=== PATIENT | male | born 1950 ===

== ENCOUNTER 2016-08-04 02:44 | Observation (INO) | payer SELFPAY ==
[2016-08-04] MEDS ORDERED: DiphenhydrAMINE 50 mg/ml Inj ONE (02:49)
[2016-08-04] MEDS ORDERED: DiphenhydrAMINE 50 mg/ml Inj IVP STA (03:04)
--- NOTE | 2016-08-04 03:07 | C.PDOC ---
History Of Present Illness Patient is a 66 year old male who presents to the ER with a complaint of swelling to the lips, tongue and SOB. Patient reports he was eating an orange earlier tonight. Denies rash. Chief Complaint (Nursing): Allergic Reaction History Per: Patient History/Exam Limitations: no limitations Onset/Duration Of Symptoms: Hrs Current Symptoms Are (Timing): Still Present Context: Food Possible Cause: Food Associated Symptoms: Swelling, Dyspnea. denies: Skin Rash Home/EMS Treatment: None Recent travel outside of the [place]: No Past Medical History Reviewed: Historical Data, Nursing Documentation, Vital Signs Vital Signs: Last Vital Signs Temp 98.9 F 08/04/16 03:48 Pulse 56 L 08/04/16 05:23 Resp 16 08/04/16 05:23 BP 151/83 H 08/04/16 05:23 Pulse Ox 98 08/04/16 05:33 - Medical History PMH: HTN Surgical History: No Surg Hx Family History: States: Unknown Family Hx - Social History Hx Alcohol Use: No Hx Substance Use: No - Immunization History Hx Tetanus Toxoid Vaccination: No Hx Influenza Vaccination: No Hx Pneumococcal Vaccination: No Review Of Systems Respiratory: Positive for: Shortness of Breath Skin: Positive for: Other (Swelling). Negative for: Rash Physical Exam - Physical Exam Appears: Non-toxic, No Acute Distress Skin: Normal Color, Warm, Dry Head: Atraumatic, Normacephalic Oral Mucosa: Moist Tongue: Swelling Lips: Swelling Throat: Normal, No Other (Swelling) Chest: Symmetrical, No Tenderness Cardiovascular: Rhythm Regular, No Murmur Respiratory: Rales (Bilaterally to lower half posteriorly), No Rhonchi, No Wheezing Gastrointestinal/Abdominal: Soft, No Tenderness Neurological/Psych: Oriented x3, Normal Speech, Normal Cognition ED Course And Treatment - Laboratory Results Result Diagrams: 08/04/16 03:12 08/04/16 03:12 ECG Interpretation: Normal, No Acute Changes Interpretation Of ECG: NSR, poor R wave progression V! to V4, no acute change, normal tracings. O2 Sat by Pulse Oximetry: 98 (Room air) Pulse Ox Interpretation: Normal - Radiology CXR: Interpreted by Or CXR Interpretation: Yes: No Acute Disease. No: Infiltrates - CT Scan/US CT neck soft tissue Other Rad Studies (CT/US): Read By Radiologist, Radiology Report Reviewed CT/US Interpretation: EXAM: CT Neck Without Intravenous Contrast. CLINICAL HISTORY: 66 years old, male; Pain; Painful swallowing; Additional info: Swelling of. tongue-angioedema. TECHNIQUE: Axial computed tomography images of the neck without intravenous contrast. This CT. exam was performed using one or more of the following dose reduction techniques: automated. exposure control, adjustment of the mA and/or kV according to patient size, and/or use of iterative. reconstruction technique. Coronal and sagittal reformatted images were created and reviewed. COMPARISON: No relevant prior studies available. FINDINGS: Nasopharynx: Unremarkable. Oropharynx: Unremarkable. No significant tonsillar enlargement. Hypopharynx: Unremarkable. Larynx: Unremarkable. Normal epiglottis. Trachea: Unremarkable. Retropharyngeal space : Unremarkable. Submandibular/parotid glands: Unremarkable. Glands are normal in size. Thyroid: Unremarkable. No enlarged or calcified nodules. Bones/joints : No acute fracture. Soft tissues: Mucosal thickening in the hypopharynx worrisome for pharyngitis. There is extensive. edema in the soft tissues of the neck consistent with infection. No definite abscess however. evaluation is limited without intravenous contrast. Vasculature: No acute findings. Lymph nodes: Unremarkable. No lymphadenopathy. Sinuses: Mucosal thickening maxillary sinuses. Lung apices: Unremarkable as visualized. IMPRESSION: Mucosal thickening in the hypopharynx worrisome for pharyngitis. There is extensive edema in the. soft tissues of the neck consistent with infection. No definite abscess however evaluation is limited. without intravenous contrast. CT Chest Other Rad Studies (CT/US): Read By Radiologist, Radiology Report Reviewed CT/US Interpretation: EXAM: CT Chest Without Intravenous Contrast. CLINICAL HISTORY: 66 years old, male; Pain; Chest pain; Additional info: Bilateral lung ralesallergy. TECHNIQUE: Axial computed tomography images of the chest without intravenous contrast. This. CT exam was performed using one or more of the following dose reduction techniques: automated. exposure control, adjustment of the mA and/or kV according to patient size, and/or use of iterative. reconstruction technique. Coronal and sagittal reformatted images were created and reviewed. COMPARISON: No relevant prior studies available. FINDINGS: Lungs: Mild centrilobular emphysema in the upper lobes. Pleural space: Unremarkable. No pneumothorax. No significant effusion. Heart: Unremarkable. No cardiomegaly. No significant pericardial effusion. Bones/joints: Flowing osteophyte formations thoracic spine compatible with DISH. Probable degenerative fusion of the lower thoracic interspace. No acute fracture. No dislocation. Soft tissues: Unremarkable. Vasculature: Tortuous thoracic aorta. No thoracic aortic aneurysm. Lymph nodes: Unremarkable. No enlarged lymph nodes. Adrenals: Small myolipoma in the left adrenal gland. IMPRESSION: No acute findings. Progress Note: EKG, blood work, CXR, and neck soft tissue x-ray ordered. Benadryl, pepcid, and solumedrol administered. Reevaluation Time: 04:09 (states the swelling is lessen, not SOB, complaining of his chronic right sdhoulder pain, area tender to touch.) Disposition Discussed With Dr.: Ryan Mora Doctor Will See Patient In The: Hospital Counseled Patient/Family Regarding: Diagnosis - Disposition Disposition: HOSPITALIZED Disposition Time: 05:34 Condition: STABLE - POA Present On Arrival: None - Clinical Impression Clinical Impression: Angioedema - Scribe Statement The provider has reviewed the documentation as recorded by the Inaibelsie Blancas All medical record entries made by the Inaibelsie were at my direction and personally dictated by me. I have reviewed the chart and agree that the record accurately reflects my personal performance of the history, physical exam, medical decision making, and the department course for this patient. I have also personally directed, reviewed, and agree with the discharge instructions and disposition.
[2016-08-04 03:15] LABS: BASO # 0.1 K/uL (0.0-0.2); BASO % 0.8 % (0.0-2.0); EOS % 10.4 % (0.0-4.0); HEMOGLOBIN 12.9 g/dL (12.0-18.0); LYMPH # 4.1 K/uL (1.0-4.3); LYMPH % 42.2 % (20.0-40.0); MEAN CELL VOLUME 99.5 fL (80.0-94.0); MEAN CORPUSCULAR HEMOGLOBIN 32.4 pg (27.0-31.0); MEAN CORPUSCULAR HGB CONC 32.6 g/dL (33.0-37.0); MEAN PLATELET VOLUME 9.4 fL (7.2-11.7); MONO # 0.7 K/uL (0.0-0.8); MONO % 7.5 % (0.0-10.0); NEUT # 3.8 K/uL (1.8-7.0); NEUT % 39.1 % (50.0-75.0); NRBC % 0.1 % (0.0-2.0); RBC 3.97 Mil/uL (4.40-5.90); RED CELL DISTRIBUTION WIDTH 14.1 % (11.5-14.5); WHITE BLOOD COUNT 9.6 K/uL (4.8-10.8)
[2016-08-04 03:27] LABS: ALBUMIN 4.2 g/dL (3.5-5.0)
[2016-08-04 03:29] LABS: GFR AFRICAN-AMERICAN > 60; GFR NON-AFRICAN AMERICAN > 60
[2016-08-04 03:30] LABS: ALB/GLOB RATIO 1.1 (1.0-2.1); ALT/SGPT 35 U/L (21-72); AST/SGOT 34 U/L (17-59); BLOOD UREA NITROGEN 17 mg/dL (9-20); CALCIUM 9.5 mg/dl (8.6-10.4)
[2016-08-04 03:39] LABS: B-TYPE NATRIURETIC PEPTIDE 65.6 pg/mL (0-900)
--- NOTE | 2016-08-04 06:25 | CP.PCM.HP ---
<Lynn Acosta - Last Filed: 08/04/16 06:42> History of Present Illness - History of Present Illness History of Present Illness: CC - "tongue and lips swollen" HPI - Patient is a 66 year old male who presents to the ER with a complaint of swelling to the lips and tongue . Patient reports he was eating an orange earlier tonight and went to bed. He woke up felt as his lips/tongue was swollen so he took a Claritin and went back to bed. 30 minutes prior to ED arrival he felt that his tongue was more swollen to he called a friend and they took a taxi to the ED. He denied SOB, rash, itching. He states he has had this problem before about 6 months ago. He states this has happened 20+ times in his country ([place] He states he will go to his doctor get some shots when this happens and then he goes home. He came to the [place] one month ago and went [facility] but could not get it done because it was too expensive. He does not know what brings about these episodes. He states this happened once before when he was eating oranges but was not as bad. PMHx - HTN Surg - denies Meds - Amlodipine 10mg PO daily Allergies - NKDA Famhx - denies, no hx of angioedema Social - former smoker quit 4 years ago smoker for 40 years, denied drug use, social alcohol use Present on Admission - Present on Admission Any Indicators Present on Admission: No Review of Systems - Constitutional Constitutional: absent: Chills, Fever, Headache - EENT Eyes: absent: Blurred Vision, Change in Vision - Cardiovascular Cardiovascular: absent: Chest Pain, Chest Pain at Rest, Diaphoresis, Syncope - Respiratory Respiratory: absent: Cough, Dyspnea, Dyspnea on Exertion - Gastrointestinal Gastrointestinal: absent: Abdominal Pain, Constipation, Diarrhea, Nausea, Vomiting - Genitourinary Genitourinary: absent: Change in Urinary Stream, Difficulty Urinating - Musculoskeletal Additional comments: + R shoulder pain - Neurological Neurological: absent: Tingling, Weakness Past Patient History - Past Social History Smoking Status: Former Smoker - CARDIAC Hx Hypertension: Yes - ENDOCRINE/METABOLIC Hx Diabetes Mellitus Type 2: Yes - PSYCHIATRIC Hx Substance Use: No Meds Allergies/Adverse Reactions: Allergies Allergy/AdvReac Type Severity Reaction Status Date / Time cheese Allergy ANGIOEDEMA Verified 08/04/16 15:16 ORANGE Allergy ANGIOEDEMA Verified 08/04/16 14:55 orange juice Allergy ANGIOEDEMA Verified 08/04/16 14:55 Physical Exam - Constitutional Appears: Non-toxic, No Acute Distress - Head Exam Head Exam: ATRAUMATIC, NORMAL INSPECTION - Eye Exam Eye Exam: Normal appearance, PERRL Pupil Exam: NORMAL ACCOMODATION - ENT Exam ENT Exam: Mucous Membranes Moist Additional comments: swelling at the base of the tongue more on the right than left, able to protect airway - Respiratory Exam Respiratory Exam: Clear to Auscultation Bilateral, NORMAL BREATHING PATTERN. absent: Respiratory Distress - Cardiovascular Exam Cardiovascular Exam: REGULAR RHYTHM, +S1, +S2 - GI/Abdominal Exam GI & Abdominal Exam: Normal Bowel Sounds, Soft. absent: Distended, Firm, Guarding - Extremities Exam Extremities exam: Positive for: normal inspection. Negative for: calf tenderness, pedal edema - Back Exam Back exam: NORMAL INSPECTION. absent: CVA tenderness (L), CVA tenderness (R), paraspinal tenderness - Neurological Exam Neurological exam: Alert, Oriented x3 - Psychiatric Exam Psychiatric exam: Normal Affect, Normal Mood - Skin Skin Exam: Dry, Intact, Normal Color, Warm Results - Vital Signs Recent Vital Signs: Last Vital Signs Temp 98.9 F 08/04/16 03:48 Pulse 56 L 08/04/16 05:23 Resp 16 08/04/16 05:23 BP 151/83 H 08/04/16 05:23 Pulse Ox 98 08/04/16 05:34 - Labs Result Diagrams: 08/04/16 03:12 08/04/16 03:12 Assessment & Plan - Assessment and Plan (Free Text) Assessment: Angioedema +swelling of the base on tongue, able to protect airway Solumedrol 125mg IVP given in ED will give 40mg IVP Q12 hours Pepcid 20mg IVP Q12 was given Benadryl x 1 dose Claritin PO daily f/u soft tissue CT neck and chest HTN Amlodipine 10mg PO daily Prophylactic measures Pepcid SCD NPO Monitor on tele <Ryan Mora P - Last Filed: 08/06/16 23:04> Results - Vital Signs Recent Vital Signs: Last Vital Signs Temp 98 F 08/05/16 08:00 Pulse 91 H 08/05/16 08:00 Resp 18 08/05/16 08:00 BP 147/81 08/05/16 08:00 Pulse Ox 97 08/05/16 08:00 - Labs Result Diagrams: 08/04/16 03:12 08/05/16 08:23 Attending/Attestation - Attestation I have personally seen and examined this patient.: Yes I have fully participated in the care of the patient.: Yes I have reviewed all pertinent clinical information: Yes
--- NOTE | 2016-08-04 08:10 | RAD ---
PROCEDURE: Radiographs of the neck (soft tissue). HISTORY: re: allergic reaction bed 5 COMPARISON: None. TECHNIQUE: Frontal and Lateral Radiographs of the neck, optimized for soft tissue visualization. FINDINGS: SOFT TISSUES: Unremarkable. No radiopaque foreign body seen. CERVICAL SPINE: C3-C4 C5 exuberant bridging anterior spondylosis anteriorly displacing without grossly compressing the airway per lateral view. OTHER FINDINGS: Multiple missing teeth. No foreign body seen IMPRESSION: Exuberant anterior cervical spondylosis with the aforementioned displacement/mass effect. No compressed airway suggested per lateral view
--- NOTE | 2016-08-04 09:12 | CP.PCM.PN ---
<TuckerYola NancyRosemary - Last Filed: 08/04/16 16:47> Subjective - Date & Time of Evaluation Date of Evaluation: 08/04/16 Time of Evaluation: 09:00 - Subjective Subjective: Medicine Note (PGY 1): Dr. Villalobos's service Patient was seen and examined at bedside in the AM. Patient states he can now swallow his saliva and can also speak currently since admission to the ED. Patient states he ate an orange before going to bed and woke up with swollen lips and tongue. Patient stated this has happened in the past after eating oranges but not as severe. Patient also states this has happened in the past after eating yellow cheese. Patient denies chest pain, shortness of breath, difficulty swallowing, dyspnea, nausea, or vomiting. Patient states he would like to eat solid food. Objective - Vital Signs/Intake and Output Vital Signs (last 24 hours): Temp Pulse Resp BP Pulse Ox 98.9 F 76 14 145/88 97 08/04/16 03:48 08/04/16 07:17 08/04/16 07:17 08/04/16 07:17 08/04/16 07:17 - Medications Medications: Current Medications Amlodipine Besylate (Norvasc) 10 mg PO DAILY [facility] Famotidine (Pepcid) 20 mg IVP Q12 [facility] Loratadine (Claritin) 10 mg PO DAILY [facility] Methylprednisolone (Solu-Medrol) 40 mg IVP Q12 [facility] - Constitutional Appears: No Acute Distress - Head Exam Head Exam: NORMAL INSPECTION - Eye Exam Eye Exam: Normal appearance - ENT Exam ENT Exam: Mucous Membranes Moist, Normal Exam Additional comments: Lips and tongue not swollen - Neck Exam Neck Exam: Normal Inspection. absent: Tenderness Additional comments: not swollen - Respiratory Exam Respiratory Exam: Clear to Ausculation Bilateral, NORMAL BREATHING PATTERN. absent: Rales, Rhonchi, Wheezes, Stridor - Cardiovascular Exam Cardiovascular Exam: REGULAR RHYTHM, RRR, +S1, +S2. absent: JVD - GI/Abdominal Exam GI & Abdominal Exam: Soft, Normal Bowel Sounds. absent: Tenderness - Extremities Exam Extremities Exam: absent: Calf Tenderness, Pedal Edema, Tenderness - Neurological Exam Neurological Exam: Alert, Awake, Oriented x3 - Psychiatric Exam Psychiatric exam: Normal Mood - Skin Skin Exam: Normal Color, Warm. absent: Erythema, Petechiae, Rash Assessment and Plan - Assessment and Plan (Free Text) Assessment: Patient is a 66 year old male who presents to the emergency room 08/04/16 with a complaint of swelling to the lips and tongue. Plan: 1.) Angioedema * Swelling of the base on tongue- Has resolved * Allergy to Oranges * Allergy to Cheese * Solumedrol 125mg IVP given in ED * Changed to 40mg IVP Q12 hours * Pepcid 20mg IVP Q12 * was given Benadryl x 1 dose * Claritin PO daily * Soft tissue CT neck and chest: Abnormal soft tissue and edema in the right side of the floor of the mouth, right upper neck spaces with effacement of the right paraphyrngeal space and piriform sinus and abnormal thickening of the hypopharyngeal soft tissues, the constellation of findings is most compatible with angeioedema with the stated clinical history. Mild mass effect on the right oropharyngeal airway without evidence of significant narrowing. Asymmetric reactive edema and enlargement of the right submandibular gland and reactive right cervical chain lymphadenopathy. * Chest CT: Emphysematous changes. Small left adrenal gland myelolipoma 2.) Chronic Hypertension * Amlodipine 10mg PO daily 3.) Prophylactic measures * Observation * Pepcid * SCD Patient to follow up with PMD Dr. Whitfield in [facility] <Elizabeth Villalobos V - Last Filed: 08/05/16 09:53> Objective - Vital Signs/Intake and Output Vital Signs (last 24 hours): Temp Pulse Resp BP Pulse Ox 98 F 91 H 18 147/81 97 08/05/16 08:00 08/05/16 08:00 08/05/16 08:00 08/05/16 08:00 08/05/16 08:00 Intake and Output: 08/05/16 08/05/16 06:59 18:59 Output Total 300 Balance -300 - Medications Medications: Current Medications Amlodipine Besylate (Norvasc) 10 mg PO DAILY [facility] Last Admin: 08/04/16 15:33 Dose: 10 mg Famotidine (Pepcid) 20 mg IVP Q12 [facility] Last Admin: 08/04/16 22:56 Dose: 20 mg Heparin Sodium (Porcine) (Heparin) 5,000 units SC Q8 [facility] Dextrose/Sodium Chloride (Dextrose 5%/0.45% Ns 1000 Ml) 1,000 mls @ 75 mls/hr IV .[id number] [facility] Last Admin: 08/04/16 15:48 Dose: 75 mls/hr Insulin Human Regular (Novolin R) 0 unit SC ACHS [facility] PRN Reason: Protocol Last Admin: 08/05/16 08:28 Dose: 4 unit Loratadine (Claritin) 10 mg PO DAILY [facility] Last Admin: 08/04/16 11:13 Dose: 10 mg Methylprednisolone (Solu-Medrol) 40 mg IVP Q12 [facility] Last Admin: 08/04/16 22:56 Dose: 40 mg - Labs Labs: 08/05/16 08:23 Attending/Attestation - Attestation I have personally seen and examined this patient.: Yes I have fully participated in the care of the patient.: Yes I have reviewed all pertinent clinical information, including history, physical exam and plan: Yes Notes (Text): This is late computer entry for 08/04/16. Patient seen, examined, and case discussed with day-time internet application developer. Patient reports he associated perioral numbness and tingling with items such as orange, orange juice, and cheese. Patient reports when he lived in [facility] he paid 1000 pesos for an allergy test and reports no results from that test. Patient also reports he is a diabetic. Discussed with nursing to not give orange/orange juice per hypoglycemic protocol given suspected cause for his angioedema. Patient is speaking clearly at bedside. +Gag reflex. Patient reports he is feeling better. EMR updated to reflect to update patient's suspected allergies. Patient will be monitored over night for further monitoring given angioedema secondary to allergy to stated food items. Patient will need an EPI-PEN upon discharge. Patient reports he will complete allergy testing with his primary care doctor in [place]. Ordered for hgba1c, lipid panel, on IV fluids supplemented with dextrose, and monitor accuchecks Assessment/Plan 1.) Angioedema * Suspected etiology including orange, orange juice, and cheese * Patient's tongue is reduced in swelling * On admission, solumedrol 125mg IVP given on admission-->changed to Solumedrol 40mg IVP Q12 hours * Pepcid 20mg IVP Q12 * Benadryl 25mg IV Q 6 hour PRN allergy * Soft tissue CT neck and chest: Abnormal soft tissue and edema in the right side of the floor of the mouth, right upper neck spaces with effacement of the right paraphyrngeal space and piriform sinus and abnormal thickening of the hypopharyngeal soft tissues, the constellation of findings is most compatible with angeioedema with the stated clinical history. Mild mass effect on the right oropharyngeal airway without evidence of significant narrowing. Asymmetric reactive edema and enlargement of the right submandibular gland and reactive right cervical chain lymphadenopathy. * Chest CT: Emphysematous changes. Small left adrenal gland myelolipoma 2) Diabetes * per discussion with patient and nursing staff * Ordered for a1c, lipid panel * Accuchecks QAC and HS * IV fluid supplemented with dextrose until patient tolerates diet 3.) Chronic Hypertension * Amlodipine 10mg PO daily * monitor vital signs 4) Emphysema * Patient is a former smoker * Chest CT: Emphysematous changes. Small left adrenal gland myelolipoma 5.) Prophylactic measures * Observation for 24 hours given allergic symptoms secondary to orange/orange juice/yellow cheese * Pepcid 20mg IV Q 12hours * SCDs b/l
--- NOTE | 2016-08-04 10:35 | RAD ---
HISTORY: SOB COMPARISON: No prior. TECHNIQUE: Chest, one view. FINDINGS: LUNGS: Right peritracheal opacity, possibly tortuous vasculature. No focal consolidation. Please note that chest x-ray has limited sensitivity for the detection of pulmonary masses. PLEURA: No significant pleural effusion identified. No definite pneumothorax . CARDIOVASCULAR: Heart size appears within normal limits. Ectatic aorta. OSSEOUS STRUCTURES: Degenerative changes. VISUALIZED UPPER ABDOMEN: Unremarkable. OTHER FINDINGS: None. IMPRESSION: Right peritracheal opacity, possibly tortuous vasculature.
--- NOTE | 2016-08-04 11:01 | CT ---
CT chest without IV contrast Indication: bilateral lung rales-allergy Technique: Contiguous axial images were obtained through the chest without intravenous contrast enhancement. Sagittal and coronal reconstructions were generated and reviewed. This CT exam was performed using 1 or more of the falling dose reduction techniques: Automated exposure control, adjustment of the MAA and/or kV according to patient size, and/or use of iterative reconstruction technique. Radiation dose (DLP): 618.72 MGy-cm. Comparison: Chest x-ray performed 08/04/16 Findings: Visualized portions of the inferior thyroid gland appear unremarkable. The unenhanced mediastinal and hilar vascular structures appear grossly unremarkable. The heart appears within normal limits of size. Tortuous thoracic aorta. Mild centrilobular emphysema predominantly within upper lobes. No focal consolidation. No pleural effusion. No pneumothorax. No suspicious pulmonary nodules measuring greater than 5 mm. Limited visualization of the noncontrast upper abdomen demonstrates small myolipoma within the left adrenal gland. Bilateral gynecomastia. Atherosclerotic calcifications including confluent anterior osteophyte formation compatible with DISH. Probable degenerative fusion of the lower thoracic spine. No acute osseous abnormality is detected. Impression: Emphysematous changes. Small left adrenal gland myelolipoma. Preliminary impression was provided by virtual radiologic.
--- NOTE | 2016-08-04 14:47 | CT ---
PROCEDURE: CT NECK WITHOUT CONTRAST HISTORY: swelling of tongue- angioedema COMPARISON: None. TECHNIQUE: CT of the neck without intravenous contrast. Coronal and sagittal reformats generated. Radiation dose: DLP 493.02 mGy-cm This CT exam was performed using one or more of the following dose reduction techniques: Automated exposure control, adjustment of the mA and/or kV according to patient size, and/or use of iterative reconstruction technique. FINDINGS: NASOPHARYNX: Normal in appearance. No evidence of nasopharyngeal airway narrowing. SUPRAHYOID NECK: There is swelling and edema of the tongue and abnormal soft-tissue in the right-side of the floor of the mouth, edema and abnormal soft-tissue in the right upper neck spaces with effacement of the parapharyngeal space and piriform sinus. There is mild mass effect on the right oropharynx. There is also thickening of the hypopharyngeal soft tissues. INFRAHYOID NECK: The larynx, hypopharynx, and supraglottic space are normal in appearance. Vocal cords intact. GLANDS: There is asymmetric enlargement of the right submandibular gland with surrounding fat stranding. Parotid and left submandibular glands unremarkable. Normal size thyroid gland, without nodule. LYMPH NODES: There is mild asymmetric enlargement of the right cervical chain lymph nodes, likely reactive in etiology. CERVICAL SPINE: No fracture or focal lesion. There is flowing anterior ossification from C3-C5 and from C6 to T1. OTHER FINDINGS: Mild paraseptal and centrilobular emphysema in the upper lobes. IMPRESSION: 1. Abnormal soft tissue and edema in the right side of the floor of the mouth, right upper neck spaces with effacement of the right parapharyngeal space and piriform sinus and abnormal thickening of the hypopharyngeal soft tissues, the constellation of findings is most compatible with angioedema with the stated clinical history. Mild mass effect on the right oropharyngeal airway without evidence of significant narrowing. 2. Asymmetric reactive edema and enlargement of the right submandibular gland and reactive right cervical chain lymphadenopathy. There is a discrepancy with the Vrad preliminary read. Important findings were discussed with Dr. Goldstein in the ER on 08/04/2016 at 2:45 p.m.
[2016-08-04] MEDS ORDERED: Dextrose 5%/0.45% NS 1,000 ML IV SCH (15:00)
[2016-08-04] MEDS: MethylPREDNISolone 40 mg Vial IVP SCH ×2 (15:57→22:56)
--- NOTE | 2016-08-04 22:41 | CARD ---
APPROVED REPORT EKG Measurement Heart [id number] <Conclusion> Normal sinus rhythm Normal ECG
[2016-08-04] MEDS: (Novolin R) Insulin Human Regular 100 units/ml vial SC SCH (22:55)
[2016-08-05 01:59] VITALS: PULSE 91
[2016-08-05] MEDS: (Novolin R) Insulin Human Regular 100 units/ml vial SC SCH (08:28)
[2016-08-05 08:46] VITALS: BP 147/81; RESP 18; TEMP 98; O2SAT 97
[2016-08-05 08:54] LABS: ALBUMIN 3.9 g/dL (3.5-5.0)
[2016-08-05 08:56] LABS: GFR AFRICAN-AMERICAN > 60; GFR NON-AFRICAN AMERICAN > 60
[2016-08-05 08:57] LABS: ALB/GLOB RATIO 1.1 (1.0-2.1); ALT/SGPT 20 U/L (21-72); AST/SGOT 22 U/L (17-59); BLOOD UREA NITROGEN 17 mg/dL (9-20)
[2016-08-05 08:58] LABS: CALCIUM 8.7 mg/dl (8.6-10.4); MAGNESIUM 2.1 mg/dL (1.6-2.3)
[2016-08-05] MEDS: MethylPREDNISolone 40 mg Vial IVP SCH (10:08)
--- NOTE | 2016-08-05 11:08 | CP.PCM.DIS ---
Provider - Provider Date of Admission: 08/04/16 05:35 Attending physician: Ryan Mora MD Time Spent in preparation of Discharge (in minutes): 40 Diagnosis - Discharge Diagnosis (1) Angioedema Status: Resolved Comment: See hospital summary for further details. (2) Hypertension Status: Chronic Comment: See hospital summary for further details. Hospital Course - Lab Results Lab Results: Most Recent Lab Values WBC 9.6 K/uL (4.8-10.8) 08/04/16 03:12 RBC 3.97 Mil/uL (4.40-5.90) L 08/04/16 03:12 Hgb 12.9 g/dL (12.0-18.0) 08/04/16 03:12 Hct 39.5 % (35.0-51.0) 08/04/16 03:12 MCV 99.5 fL (80.0-94.0) H 08/04/16 03:12 MCH 32.4 pg (27.0-31.0) H 08/04/16 03:12 MCHC 32.6 g/dL (33.0-37.0) L 08/04/16 03:12 RDW 14.1 % (11.5-14.5) 08/04/16 03:12 Plt Count 243 K/uL (130-400) 08/04/16 03:12 MPV 9.4 fL (7.2-11.7) 08/04/16 03:12 Neut % (Auto) 39.1 % (50.0-75.0) L 08/04/16 03:12 Lymph % (Auto) 42.2 % (20.0-40.0) H 08/04/16 03:12 [place] % (Auto) 7.5 % (0.0-10.0) 08/04/16 03:12 Eos % (Auto) 10.4 % (0.0-4.0) H 08/04/16 03:12 Baso % (Auto) 0.8 % (0.0-2.0) 08/04/16 03:12 Neut # 3.8 K/uL (1.8-7.0) 08/04/16 03:12 Lymph # 4.1 K/uL (1.0-4.3) 08/04/16 03:12 [place] # 0.7 K/uL (0.0-0.8) 08/04/16 03:12 Eos # 1.0 K/uL (0.0-0.7) H 08/04/16 03:12 Baso # 0.1 K/uL (0.0-0.2) 08/04/16 03:12 Sodium 136 mmol/L (132-148) 08/05/16 08:23 Potassium 4.4 mmol/L (3.6-5.2) 08/05/16 08:23 Chloride 104 mmol/L (98-107) 08/05/16 08:23 Carbon Dioxide 21 mmol/L (22-30) L 08/05/16 08:23 Anion Gap 15 (10-20) 08/05/16 08:23 BUN 17 mg/dL (9-20) 08/05/16 08:23 Creatinine 0.8 MG/DL (0.8-1.5) 08/05/16 08:23 Est GFR ( Amer) > 60 08/05/16 08:23 Est GFR (Non-Af Amer) > 60 08/05/16 08:23 POC Glucose (mg/dL) 278 mg/dL (65-110) H 08/05/16 06:38 Random Glucose 262 mg/dL (75-110) H 08/05/16 08:23 Calcium 8.7 mg/dl (8.6-10.4) 08/05/16 08:23 Phosphorus 3.3 mg/dL (2.5-4.5) 08/05/16 08:23 Magnesium 2.1 mg/dL (1.6-2.3) 08/05/16 08:23 Total Bilirubin 0.6 mg/dL (0.2-1.3) 08/05/16 08:23 AST 22 U/L (17-59) 08/05/16 08:23 ALT 20 U/L (21-72) L D 08/05/16 08:23 Alkaline Phosphatase 73 U/L (38-126) 08/05/16 08:23 Troponin I 0.0170 ng/mL (0.00-0.120) 08/04/16 03:12 NT-Pro-B Natriuret Pep 65.6 pg/mL (0-900) 08/04/16 03:12 Total Protein 7.6 g/dL (6.3-8.3) 08/05/16 08:23 Albumin 3.9 g/dL (3.5-5.0) 08/05/16 08:23 Globulin 3.7 gm/dL (2.2-3.9) 08/05/16 08:23 Albumin/Globulin Ratio 1.1 (1.0-2.1) 08/05/16 08:23 - Hospital Course Hospital Course: Patient is a 66 year old male who presents to the ER with a complaint of swelling to the lips and tongue . Patient reports he was eating an orange earlier tonight and went to bed. He woke up felt as his lips/tongue was swollen so he took a Claritin and went back to bed. 30 minutes prior to ED arrival he felt that his tongue was more swollen to he called a friend and they took a taxi to the ED. He denied SOB, rash, itching. He states he has had this problem before about 6 months ago. He states this has happened 20+ times in his country ([place] He states he will go to his doctor get some shots when this happens and then he goes home. He came to the [place] one month ago and went to [facility] for allergy testing but could not get it done because it was too expensive. He does not know what brings about these episodes. He states this happened once before when he was eating oranges but was not as bad. Patient was admitted. Per hospital Course: Solumedrol 125mg IVP was given in the Emergency Department; Benadryl one dose, Claritin once daily. Soft tissue CT neck and chest: Abnormal soft tissue and edema in the right side of the floor of the mouth, right upper neck spaces with effacement of the right paraphyrngeal space and piriform sinus and abnormal thickening of the hypopharyngeal soft tissues, the constellation of findings is most compatible with angeioedema with the stated clinical history. Mild mass effect on the right oropharyngeal airway without evidence of significant narrowing. Asymmetric reactive edema and enlargement of the right submandibular gland and reactive right cervical chain lymphadenopathy. * Chest CT: Emphysematous changes. Small left adrenal gland myelolipoma Please discharge patient to home as per Dr. Becerra. Avoid oranges and all other foods that may cause allergic reaction. Please take the following NEW home medication: Epi pen to take as directed during allergic reactions only. Hydrochlorothiazide 25 mg by mouth daily Resume home medication of Amlodipine (Norvasc) 10 mg by mouth daily. Follow up with your primary care doctor Dr. Whitfield within one week of discharge. Return to the emergency room if symptoms return or worsen. Instruction explained to patient who understands and agrees. This is a summary of patient's hospitalization please refer to EMR for further details of the record. Discharge Exam - Head Exam Head Exam: NORMAL INSPECTION - Eye Exam Eye Exam: Normal appearance - ENT Exam ENT Exam: Mucous Membranes Moist, Normal Oropharynx Additional comments: Lip and Tongue are no longer swollen. No stridor heard. - Respiratory Exam Respiratory Exam: Clear to PA & Lateral, NORMAL BREATHING PATTERN - Cardiovascular Exam Cardiovascular Exam: REGULAR RHYTHM, RRR, +S1, +S2. absent: JVD - GI/Abdominal Exam GI & Abdominal Exam: Normal Bowel Sounds. absent: Distended, Tenderness - Extremities Exam Extremities exam: normal inspection - Neurological Exam Neurological exam: Alert, Oriented x3 - Psychiatric Exam Psychiatric exam: Normal Mood - Skin Skin Exam: Normal Color, Warm Discharge Plan - Discharge Medications Prescriptions: amLODIPine 10 mg PO DAILY #30 Epinephrine [Epipen] 0.3 mg IJ PRN PRN #2 auto.injct PRN Reason: Allergy Symptoms hydroCHLOROthiazide [Hydrodiuril] 25 mg PO DAILY #30 tab - Follow Up Plan Condition: STABLE Disposition: HOME/ ROUTINE Instructions: Amiloride/Hydrochlorothiazide (By mouth), Amlodipine (By mouth), Epinephrine (By injection), Food Allergy (DC), Angioedema (GEN) Additional Instructions: Please discharge patient to home as per Dr. Becerra Avoid oranges and all other foods that may cause allergic reaction. Please take the following NEW home medication: Epi pen to take as directed during allergic reactions only. Hydrochlorothiazide 25 mg by mouth daily Resume home medication of Amlodipine (Norvasc) 10 mg by mouth daily. Follow up with your primary care doctor Dr. Whitfield within one week of discharge. Return to the emergency room if symptoms return or worsen. Instruction explained to patient who understands and agrees. Referrals: Tremayne Becerra MD [Staff Provider] -
[2016-08-05 11:26] LABS: HDL CHOLESTEROL 47 mg/dL (30-70)
[2016-08-05 11:36] LABS: LDL CHOLESTEROL 83 mg/dL (0-129)
== END 2016-08-05 12:29 | disposition home or self-care (01) ==
LOC: C.ER 02:44 → C.9E 05:35 → C.6T 11:04
PROVIDERS: ADMIT Internal Medicine; ATTEND Internal Medicine
DX: T78.3XXA Angioneurotic edema, initial encounter (principal); Z79.899 Other long term (current) drug therapy; Z87.891 Personal history of nicotine dependence; E11.9 Type 2 diabetes mellitus without complications; I10 Essential (primary) hypertension; J43.9 Emphysema, unspecified
CPT/HCPCS: 36415; 70360; 70490; 71010; 71250; 80053; 80061; 82948; 83036; 83735; 83880; 84100; 84484; 85025; 93005; 96374; 96375; 96376; 99285; G0378; J1200; J2920; J2930; J7042